=== PATIENT | female | born 1945 | race Two or more races ===

== ENCOUNTER 2020-09-06 12:08 | Outpatient (CLI) | payer MEDICARE, MEDICAID | END 2020-09-06 23:59 | disposition home or self-care (01) | LOC: MSC 12:08 | PROVIDERS: ATTEND Internal Medicine | DX: R10.9 Unspecified abdominal pain (principal); E11.22 Type 2 diabetes mellitus with diabetic chronic kidney disease; I12.9 Hypertensive chronic kidney disease with stage 1 through stage 4 chronic kidney disease, or unspecified chronic kidney disease; N18.30 Chronic kidney disease, stage 3 unspecified; Z79.84 Long term (current) use of oral hypoglycemic drugs; D35.1 Benign neoplasm of parathyroid gland; I73.9 Peripheral vascular disease, unspecified; M79.671 Pain in right foot; K21.9 Gastro-esophageal reflux disease without esophagitis; M54.9 Dorsalgia, unspecified; K59.00 Constipation, unspecified; F32.9 Major depressive disorder, single episode, unspecified; R60.0 Localized edema; R00.1 Bradycardia, unspecified; T46.1X5A Adverse effect of calcium-channel blockers, initial encounter; M17.0 Bilateral primary osteoarthritis of knee; L30.9 Dermatitis, unspecified; Z79.891 Long term (current) use of opiate analgesic; Z79.899 Other long term (current) drug therapy; Z79.82 Long term (current) use of aspirin ==

== ENCOUNTER → 2021-04-20 | Outpatient (CLI) | payer MEDICARE, OTHER | END | disposition home or self-care (01) | LOC: MSC 10:30 | PROVIDERS: ATTEND Internal Medicine | DX: R10.9 Unspecified abdominal pain (principal); S80.02XA Contusion of left knee, initial encounter; S80.01XA Contusion of right knee, initial encounter; I12.9 Hypertensive chronic kidney disease with stage 1 through stage 4 chronic kidney disease, or unspecified chronic kidney disease; E11.22 Type 2 diabetes mellitus with diabetic chronic kidney disease; N18.30 Chronic kidney disease, stage 3 unspecified; Z79.84 Long term (current) use of oral hypoglycemic drugs; Z90.89 Acquired absence of other organs; I73.9 Peripheral vascular disease, unspecified; M79.671 Pain in right foot; K21.9 Gastro-esophageal reflux disease without esophagitis; M54.9 Dorsalgia, unspecified; Z79.891 Long term (current) use of opiate analgesic; K59.00 Constipation, unspecified; F32.A Depression, unspecified; R60.0 Localized edema; R00.1 Bradycardia, unspecified; M17.0 Bilateral primary osteoarthritis of knee; L30.9 Dermatitis, unspecified; Z79.82 Long term (current) use of aspirin ==

== ENCOUNTER 2021-06-09 12:30 | Outpatient (CLI) | payer MEDICARE, OTHER | END 2021-06-09 23:59 | disposition home or self-care (01) | LOC: MSC 12:30 | PROVIDERS: ATTEND Internal Medicine | DX: D64.9 Anemia, unspecified (principal); R10.9 Unspecified abdominal pain; I12.9 Hypertensive chronic kidney disease with stage 1 through stage 4 chronic kidney disease, or unspecified chronic kidney disease; E11.22 Type 2 diabetes mellitus with diabetic chronic kidney disease; N18.30 Chronic kidney disease, stage 3 unspecified; Z79.84 Long term (current) use of oral hypoglycemic drugs; D35.1 Benign neoplasm of parathyroid gland; Z90.89 Acquired absence of other organs; I73.9 Peripheral vascular disease, unspecified; M79.671 Pain in right foot; K21.9 Gastro-esophageal reflux disease without esophagitis; M54.9 Dorsalgia, unspecified; K59.00 Constipation, unspecified; F32.A Depression, unspecified; R60.0 Localized edema; R00.1 Bradycardia, unspecified; T46.1X5 Adverse effect of calcium-channel blockers; M17.0 Bilateral primary osteoarthritis of knee; Z79.891 Long term (current) use of opiate analgesic; L30.9 Dermatitis, unspecified; Z79.82 Long term (current) use of aspirin; Z79.899 Other long term (current) drug therapy ==

== ENCOUNTER 2021-08-14 13:30 | Outpatient (CLI) | payer MEDICARE, OTHER | END 2021-08-14 23:59 | disposition home or self-care (01) | LOC: MSC 13:30 | PROVIDERS: ATTEND Internal Medicine | DX: D64.9 Anemia, unspecified (principal); M17.0 Bilateral primary osteoarthritis of knee; R10.9 Unspecified abdominal pain; E11.22 Type 2 diabetes mellitus with diabetic chronic kidney disease; I12.9 Hypertensive chronic kidney disease with stage 1 through stage 4 chronic kidney disease, or unspecified chronic kidney disease; N18.30 Chronic kidney disease, stage 3 unspecified; Z79.84 Long term (current) use of oral hypoglycemic drugs; D35.1 Benign neoplasm of parathyroid gland; Z90.89 Acquired absence of other organs; Z98.890 Other specified postprocedural states; I73.9 Peripheral vascular disease, unspecified; M79.671 Pain in right foot; K21.9 Gastro-esophageal reflux disease without esophagitis; M54.9 Dorsalgia, unspecified; K59.00 Constipation, unspecified; F32.A Depression, unspecified; R60.0 Localized edema; R00.1 Bradycardia, unspecified; L30.9 Dermatitis, unspecified; Z79.899 Other long term (current) drug therapy ==

== ENCOUNTER 2021-11-29 13:45 | Outpatient (CLI) | payer MEDICARE, OTHER | END 2021-11-29 23:59 | disposition home or self-care (01) | LOC: MSC 13:45 | PROVIDERS: ATTEND Internal Medicine | DX: E87.5 Hyperkalemia (principal); E11.22 Type 2 diabetes mellitus with diabetic chronic kidney disease; I12.9 Hypertensive chronic kidney disease with stage 1 through stage 4 chronic kidney disease, or unspecified chronic kidney disease; N18.30 Chronic kidney disease, stage 3 unspecified; Z79.84 Long term (current) use of oral hypoglycemic drugs; D64.9 Anemia, unspecified; M17.0 Bilateral primary osteoarthritis of knee; R10.9 Unspecified abdominal pain; D35.1 Benign neoplasm of parathyroid gland; Z90.89 Acquired absence of other organs; Z98.890 Other specified postprocedural states; I73.9 Peripheral vascular disease, unspecified; M79.671 Pain in right foot; K21.9 Gastro-esophageal reflux disease without esophagitis; M54.9 Dorsalgia, unspecified; K59.00 Constipation, unspecified; F32.A Depression, unspecified; R60.0 Localized edema; R00.1 Bradycardia, unspecified; T46.1X5 Adverse effect of calcium-channel blockers; L30.9 Dermatitis, unspecified; Z79.899 Other long term (current) drug therapy ==

== ENCOUNTER → 2022-01-03 | Outpatient (CLI) | payer MEDICARE, OTHER | END | disposition home or self-care (01) | LOC: MSC 14:00 | PROVIDERS: ATTEND Internal Medicine | DX: M17.0 Bilateral primary osteoarthritis of knee (principal); M79.671 Pain in right foot; D64.9 Anemia, unspecified; E11.22 Type 2 diabetes mellitus with diabetic chronic kidney disease; I12.9 Hypertensive chronic kidney disease with stage 1 through stage 4 chronic kidney disease, or unspecified chronic kidney disease; Z79.84 Long term (current) use of oral hypoglycemic drugs; R10.9 Unspecified abdominal pain; I73.9 Peripheral vascular disease, unspecified; K59.00 Constipation, unspecified; K21.9 Gastro-esophageal reflux disease without esophagitis; M54.9 Dorsalgia, unspecified; F32.A Depression, unspecified; R60.0 Localized edema; R00.1 Bradycardia, unspecified; L30.9 Dermatitis, unspecified; D35.1 Benign neoplasm of parathyroid gland; Z98.890 Other specified postprocedural states ==

== ENCOUNTER 2022-01-08 13:15 | Outpatient (CLI) | payer MEDICARE, OTHER | END 2022-01-08 23:59 | disposition home or self-care (01) | LOC: MSC 13:15 | PROVIDERS: ATTEND Internal Medicine | DX: E11.22 Type 2 diabetes mellitus with diabetic chronic kidney disease (principal); I12.9 Hypertensive chronic kidney disease with stage 1 through stage 4 chronic kidney disease, or unspecified chronic kidney disease; Z80.41 Family history of malignant neoplasm of ovary; M54.9 Dorsalgia, unspecified; M17.0 Bilateral primary osteoarthritis of knee; M79.671 Pain in right foot; D64.9 Anemia, unspecified; R10.9 Unspecified abdominal pain; I73.9 Peripheral vascular disease, unspecified; K59.00 Constipation, unspecified; K21.9 Gastro-esophageal reflux disease without esophagitis; F32.A Depression, unspecified; R60.0 Localized edema; R00.1 Bradycardia, unspecified; L30.9 Dermatitis, unspecified; D35.1 Benign neoplasm of parathyroid gland; Z98.890 Other specified postprocedural states ==

== ENCOUNTER 2022-03-13 08:45 | Outpatient (CLI) | payer MEDICARE, OTHER | END 2022-03-13 23:59 | disposition home or self-care (01) | LOC: MSC 08:45 | PROVIDERS: ATTEND Internal Medicine | DX: T78.49XA Other allergy, initial encounter (principal); R21 Rash and other nonspecific skin eruption; R11.2 Nausea with vomiting, unspecified; R19.7 Diarrhea, unspecified; Z88.0 Allergy status to penicillin; N39.0 Urinary tract infection, site not specified; R10.9 Unspecified abdominal pain; Z87.42 Personal history of other diseases of the female genital tract; Z80.41 Family history of malignant neoplasm of ovary; I12.9 Hypertensive chronic kidney disease with stage 1 through stage 4 chronic kidney disease, or unspecified chronic kidney disease; E11.22 Type 2 diabetes mellitus with diabetic chronic kidney disease; N18.9 Chronic kidney disease, unspecified; D64.9 Anemia, unspecified; M17.0 Bilateral primary osteoarthritis of knee; M79.671 Pain in right foot; M54.9 Dorsalgia, unspecified; I73.9 Peripheral vascular disease, unspecified; K59.00 Constipation, unspecified; K21.9 Gastro-esophageal reflux disease without esophagitis; F32.A Depression, unspecified; R60.0 Localized edema; R00.1 Bradycardia, unspecified; L30.9 Dermatitis, unspecified; Z98.890 Other specified postprocedural states ==

== ENCOUNTER → 2022-03-30 | Outpatient (CLI) | payer MEDICARE, OTHER | END | disposition home or self-care (01) | LOC: MSC 15:00 | PROVIDERS: ATTEND Internal Medicine | DX: N39.0 Urinary tract infection, site not specified (principal); M47.816 Spondylosis without myelopathy or radiculopathy, lumbar region; M48.061 Spinal stenosis, lumbar region without neurogenic claudication; N83.201 Unspecified ovarian cyst, right side; Z80.41 Family history of malignant neoplasm of ovary; I12.9 Hypertensive chronic kidney disease with stage 1 through stage 4 chronic kidney disease, or unspecified chronic kidney disease; E11.22 Type 2 diabetes mellitus with diabetic chronic kidney disease; N18.30 Chronic kidney disease, stage 3 unspecified; D64.9 Anemia, unspecified; R10.9 Unspecified abdominal pain; M17.0 Bilateral primary osteoarthritis of knee; M79.671 Pain in right foot; I73.9 Peripheral vascular disease, unspecified; K59.00 Constipation, unspecified; K21.9 Gastro-esophageal reflux disease without esophagitis; F32.A Depression, unspecified; R60.0 Localized edema; R00.1 Bradycardia, unspecified; L30.9 Dermatitis, unspecified; Z98.890 Other specified postprocedural states ==

== ENCOUNTER 2022-04-04 13:30 | Outpatient (CLI) | payer MEDICARE, OTHER | END 2022-04-04 23:59 | disposition home or self-care (01) | LOC: MSC 13:30 | PROVIDERS: ATTEND Internal Medicine | DX: N83.201 Unspecified ovarian cyst, right side (principal); Z80.41 Family history of malignant neoplasm of ovary; R10.9 Unspecified abdominal pain; N39.0 Urinary tract infection, site not specified; I12.9 Hypertensive chronic kidney disease with stage 1 through stage 4 chronic kidney disease, or unspecified chronic kidney disease; E11.22 Type 2 diabetes mellitus with diabetic chronic kidney disease; N18.30 Chronic kidney disease, stage 3 unspecified; D64.9 Anemia, unspecified; M17.0 Bilateral primary osteoarthritis of knee; M79.671 Pain in right foot; I73.9 Peripheral vascular disease, unspecified; K21.9 Gastro-esophageal reflux disease without esophagitis; K59.00 Constipation, unspecified; M54.9 Dorsalgia, unspecified; F32.A Depression, unspecified; R60.0 Localized edema; R00.1 Bradycardia, unspecified; L30.9 Dermatitis, unspecified; Z98.890 Other specified postprocedural states ==

== ENCOUNTER 2022-04-23 15:00 | Outpatient (CLI) | payer MEDICARE, OTHER | END 2022-04-23 23:59 | disposition home or self-care (01) | LOC: MSC 15:00 | PROVIDERS: ATTEND Internal Medicine | DX: R10.11 Right upper quadrant pain (principal); N39.0 Urinary tract infection, site not specified; N83.201 Unspecified ovarian cyst, right side; Z80.41 Family history of malignant neoplasm of ovary; J42 Unspecified chronic bronchitis; I25.10 Atherosclerotic heart disease of native coronary artery without angina pectoris; Z72.0 Tobacco use; Z79.82 Long term (current) use of aspirin; I12.9 Hypertensive chronic kidney disease with stage 1 through stage 4 chronic kidney disease, or unspecified chronic kidney disease; E11.22 Type 2 diabetes mellitus with diabetic chronic kidney disease; N18.30 Chronic kidney disease, stage 3 unspecified; D64.9 Anemia, unspecified; M17.0 Bilateral primary osteoarthritis of knee; M79.671 Pain in right foot; I73.9 Peripheral vascular disease, unspecified; K21.9 Gastro-esophageal reflux disease without esophagitis; K59.00 Constipation, unspecified; M54.9 Dorsalgia, unspecified; F32.A Depression, unspecified; R60.0 Localized edema; R00.1 Bradycardia, unspecified; T46.5X5D Adverse effect of other antihypertensive drugs, subsequent encounter; D35.1 Benign neoplasm of parathyroid gland; Z98.890 Other specified postprocedural states ==

== ENCOUNTER → 2022-08-03 | Outpatient (CLI) | payer MEDICARE, OTHER | END | disposition home or self-care (01) | LOC: MSC 16:00 | PROVIDERS: ATTEND Internal Medicine | DX: R10.9 Unspecified abdominal pain (principal); N39.0 Urinary tract infection, site not specified; N83.201 Unspecified ovarian cyst, right side; Z80.41 Family history of malignant neoplasm of ovary; J42 Unspecified chronic bronchitis; I73.89 Other specified peripheral vascular diseases; Z72.0 Tobacco use; Z79.82 Long term (current) use of aspirin; I12.9 Hypertensive chronic kidney disease with stage 1 through stage 4 chronic kidney disease, or unspecified chronic kidney disease; E11.22 Type 2 diabetes mellitus with diabetic chronic kidney disease; N18.30 Chronic kidney disease, stage 3 unspecified; D64.9 Anemia, unspecified; M17.0 Bilateral primary osteoarthritis of knee; M79.671 Pain in right foot; K21.9 Gastro-esophageal reflux disease without esophagitis; K59.00 Constipation, unspecified; M54.9 Dorsalgia, unspecified; F32.A Depression, unspecified; R60.0 Localized edema; R00.1 Bradycardia, unspecified; T46.5X5D Adverse effect of other antihypertensive drugs, subsequent encounter; D35.1 Benign neoplasm of parathyroid gland; L30.9 Dermatitis, unspecified ==

== ENCOUNTER 2022-08-15 15:00 | Outpatient (CLI) | payer MEDICARE, OTHER | END 2022-08-15 23:59 | disposition home or self-care (01) | LOC: MSC 15:00 | PROVIDERS: ATTEND Internal Medicine | DX: R10.11 Right upper quadrant pain (principal); I12.9 Hypertensive chronic kidney disease with stage 1 through stage 4 chronic kidney disease, or unspecified chronic kidney disease; E11.22 Type 2 diabetes mellitus with diabetic chronic kidney disease; N18.30 Chronic kidney disease, stage 3 unspecified; N83.201 Unspecified ovarian cyst, right side; Z80.41 Family history of malignant neoplasm of ovary; D64.9 Anemia, unspecified; D69.6 Thrombocytopenia, unspecified; I70.8 Atherosclerosis of other arteries; Z72.0 Tobacco use; Z79.82 Long term (current) use of aspirin; I73.9 Peripheral vascular disease, unspecified; J42 Unspecified chronic bronchitis; M17.0 Bilateral primary osteoarthritis of knee; M79.671 Pain in right foot; K21.9 Gastro-esophageal reflux disease without esophagitis; K59.00 Constipation, unspecified; M54.9 Dorsalgia, unspecified; F32.A Depression, unspecified; R60.0 Localized edema; R00.1 Bradycardia, unspecified; T46.5X5D Adverse effect of other antihypertensive drugs, subsequent encounter; D35.1 Benign neoplasm of parathyroid gland; L30.9 Dermatitis, unspecified; Z87.440 Personal history of urinary (tract) infections ==

== ENCOUNTER → 2022-09-07 | Outpatient (CLI) | payer MEDICARE, OTHER | END | disposition home or self-care (01) | LOC: MSC 15:45 | PROVIDERS: ATTEND Internal Medicine | DX: R10.11 Right upper quadrant pain (principal); I12.9 Hypertensive chronic kidney disease with stage 1 through stage 4 chronic kidney disease, or unspecified chronic kidney disease; E11.22 Type 2 diabetes mellitus with diabetic chronic kidney disease; N18.30 Chronic kidney disease, stage 3 unspecified; N83.201 Unspecified ovarian cyst, right side; Z80.41 Family history of malignant neoplasm of ovary; D64.9 Anemia, unspecified; D69.6 Thrombocytopenia, unspecified; J42 Unspecified chronic bronchitis; I70.8 Atherosclerosis of other arteries; Z72.0 Tobacco use; Z79.82 Long term (current) use of aspirin; I73.9 Peripheral vascular disease, unspecified; K21.9 Gastro-esophageal reflux disease without esophagitis; K59.00 Constipation, unspecified; F32.A Depression, unspecified; R60.0 Localized edema; R00.1 Bradycardia, unspecified; T46.5X5D Adverse effect of other antihypertensive drugs, subsequent encounter; D35.1 Benign neoplasm of parathyroid gland; Z87.440 Personal history of urinary (tract) infections ==

== ENCOUNTER → 2022-09-14 | Outpatient (CLI) | payer MEDICARE, OTHER | END | disposition home or self-care (01) | LOC: MSC 16:00 | PROVIDERS: ATTEND Internal Medicine | DX: R30.0 Dysuria (principal); Z87.440 Personal history of urinary (tract) infections; R10.11 Right upper quadrant pain; I12.9 Hypertensive chronic kidney disease with stage 1 through stage 4 chronic kidney disease, or unspecified chronic kidney disease; E11.22 Type 2 diabetes mellitus with diabetic chronic kidney disease; N18.30 Chronic kidney disease, stage 3 unspecified; N83.201 Unspecified ovarian cyst, right side; Z80.41 Family history of malignant neoplasm of ovary; D35.1 Benign neoplasm of parathyroid gland; D64.9 Anemia, unspecified; D69.6 Thrombocytopenia, unspecified; J42 Unspecified chronic bronchitis; I70.8 Atherosclerosis of other arteries; Z79.82 Long term (current) use of aspirin; Z72.0 Tobacco use; I73.9 Peripheral vascular disease, unspecified; K21.9 Gastro-esophageal reflux disease without esophagitis; K59.00 Constipation, unspecified; F32.A Depression, unspecified; R60.0 Localized edema; R00.1 Bradycardia, unspecified; T46.5X5D Adverse effect of other antihypertensive drugs, subsequent encounter; M17.0 Bilateral primary osteoarthritis of knee ==

== ENCOUNTER 2023-01-03 15:30 | Outpatient (CLI) | payer MEDICARE, OTHER | END 2023-01-03 23:59 | disposition home or self-care (01) | LOC: MSC 15:30 | PROVIDERS: ATTEND Internal Medicine | DX: J06.9 Acute upper respiratory infection, unspecified (principal); N64.4 Mastodynia; Z85.43 Personal history of malignant neoplasm of ovary; N83.201 Unspecified ovarian cyst, right side; N83.9 Noninflammatory disorder of ovary, fallopian tube and broad ligament, unspecified; F32.89 Other specified depressive episodes; F41.8 Other specified anxiety disorders; R91.1 Solitary pulmonary nodule; I12.9 Hypertensive chronic kidney disease with stage 1 through stage 4 chronic kidney disease, or unspecified chronic kidney disease; E11.22 Type 2 diabetes mellitus with diabetic chronic kidney disease; N18.30 Chronic kidney disease, stage 3 unspecified; D64.9 Anemia, unspecified; J42 Unspecified chronic bronchitis; I70.8 Atherosclerosis of other arteries; Z79.82 Long term (current) use of aspirin; Z72.0 Tobacco use; I73.9 Peripheral vascular disease, unspecified; M17.0 Bilateral primary osteoarthritis of knee ==

== ENCOUNTER → 2023-01-24 | Outpatient (CLI) | payer MEDICARE, OTHER | END | disposition home or self-care (01) | LOC: MSC 15:30 | PROVIDERS: ATTEND Internal Medicine | DX: G62.9 Polyneuropathy, unspecified (principal); L98.9 Disorder of the skin and subcutaneous tissue, unspecified; N64.4 Mastodynia; N83.201 Unspecified ovarian cyst, right side; Z85.43 Personal history of malignant neoplasm of ovary; N83.9 Noninflammatory disorder of ovary, fallopian tube and broad ligament, unspecified; F32.89 Other specified depressive episodes; F41.8 Other specified anxiety disorders; R91.1 Solitary pulmonary nodule; R10.9 Unspecified abdominal pain; I12.9 Hypertensive chronic kidney disease with stage 1 through stage 4 chronic kidney disease, or unspecified chronic kidney disease; E11.22 Type 2 diabetes mellitus with diabetic chronic kidney disease; N18.30 Chronic kidney disease, stage 3 unspecified; D64.9 Anemia, unspecified; J42 Unspecified chronic bronchitis; I70.8 Atherosclerosis of other arteries; Z79.82 Long term (current) use of aspirin; Z72.0 Tobacco use; I73.9 Peripheral vascular disease, unspecified; M17.0 Bilateral primary osteoarthritis of knee ==